=== PATIENT | female | born 1940 | race Caucasian/White ===

== ENCOUNTER → 2018-05-24 | Outpatient (CLI) | payer OTHER ==
[~2018-05-24] MED LIST: ACETAMINOPHEN325 M1 PO; ADULT LOW DOSE81 MG PO; B-COMPLEX PLUS1 EACH PO; CENTRUM ULTRA1 EACH PO; CO Q-10100 MG PO; COLACE 100 MG100 MG PO; FONDAPARIN2.5 MG/0.5 SQ; GLUCOSAMINE-MS1 EAC3 PO; HYDROCODON-ACE1 EACH PO; LOSARTAN-HCTZ1 EACH PO; METAMUCIL PAC1 UDPKT PO; PRAVASTATIN SOD20 MG PO; PRILOSEC 10MG C10 MG PO; RA FISH OIL PO; TAMBOCOR 50 MG50 MG PO; VERAPAMIL ER180 MG PO; VITAMIN D22000 UNIT PO
== END ==
LOC: M.RAD 10:00
DX: Z12.31 Encounter for screening mammogram for malignant neoplasm of breast (principal)

== ENCOUNTER 2018-06-03 09:21 | Emergency (ER) | payer OTHER ==
[~2018-06-03] VITALS: Ht 165.1 cm; Wt 72.6 kg
[~2018-06-03 09:21] MED LIST changes: -CO Q-10100 MG PO; -PRILOSEC 10MG C10 MG PO
[2018-06-03] MEDS ORDERED: CO Q-10100 MG PO (09:36)
[2018-06-03] MEDS ORDERED: PRILOSEC 10MG C10 MG PO (09:36)
[2018-06-03 10:38] VITALS: BP 169/62
== END 2018-06-03 10:39 | disposition home or self-care (01) ==
LOC: M.ERS 09:21
DX: S61.213A Laceration without foreign body of left middle finger without damage to nail, initial encounter (principal); E78.00 Pure hypercholesterolemia, unspecified; I10 Essential (primary) hypertension; Z88.6 Allergy status to analgesic agent; W26.8XXA Contact with other sharp object(s), not elsewhere classified, initial encounter; Y93.89 Activity, other specified; Y92.89 Other specified places as the place of occurrence of the external cause; Y99.8 Other external cause status

== ENCOUNTER → 2019-08-16 | Outpatient (CLI) | payer OTHER ==
[~2019-08-16] MED LIST changes: +CO Q-10100 MG PO; +PRILOSEC 10MG C10 MG PO
== END ==
LOC: M.RAD 13:37
DX: Z12.31 Encounter for screening mammogram for malignant neoplasm of breast (principal)

== ENCOUNTER → 2019-08-25 | Outpatient (CLI) | payer OTHER | LOC: M.RAD 08-18 07:56 | DX: N63.10 Unspecified lump in the right breast, unspecified quadrant (principal) ==

== ENCOUNTER → 2020-03-01 | Outpatient (CLI) | payer OTHER | LOC: M.RAD 12:59 | DX: N63.13 Unspecified lump in the right breast, lower outer quadrant (principal); N63.0 Unspecified lump in unspecified breast ==

== ENCOUNTER → 2020-03-07 | Outpatient (CLI) | payer OTHER ==
--- NOTE | 2020-03-13 16:07 | PATH ---
[address] [address] PATHOLOGY RPT PROCEDURE Name: SANCHEZ LOWE Room: [facility] DANNI Cruz#: [id number] Admission: 03/07/20 Date of : 36 Discharge: Report #: [id number] Path Case #: [id number] [facility] Accession Number: [id number] . 01 Material submitted: . breast - RIGHT BREAST 830 7CM FROM NIPPLE. Modifiers: right . 01 Clinical history: . 0.73 x 0.82 x 0.58 cm . 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 (SEE COMMENT) . (JAC:watson; 03/09/2020) [facility] 03/09/2020 1058 Local . 02 Comment: Specimen type: Image-guided core biopsy Tumor site: Right breast, 8:30, 7.0 cm from nipple Tumor quantitation: Approximately 50% of submitted tissues Histologic grade: Low grade (I of III) Tubules, nuclei and mitoses: 2, 2, 1 LVSI: Not identified Microcalcifications: Identified Markers: Breast tumor profile pending Block: A1 . . Breast tumor profile studies are pending on A1 and will be the subject of an addendum report. . Eleanor ([facility] Handkerchief Folder) notified at approximately 10:40 on 03/09/2020. . Reviewed with Dr. Vince Goodrich, who agrees with the diagnosis. . (JAC:watson; 03/09/2020) . 02 Addendum: . Special studies report received from [facility], [address] [place] [address], [address], [place], [address], on case [id number], labeled with their number [id number], dated 03/12/2020. . Breast/[place] [address] PATHOLOGY RPT PROCEDURE Name: SANCHEZ LOWE Room: [facility] DANNI Cruz#: [id number] Admission: 03/07/20 Date of : 36 Discharge: Report #: [id number] Path Case #: [id number] . Specimen Site: Rt Breast, 8:30, 7 Cm FN, Image-Guided Core Biopsies, Breast Cancer Specimen ID #: [id number] . ER (Estrogen Receptor) Present/Positive Percent: 95.00% Analysis: Manual Comments: Staining Intensity: Strong . NY (Progesterone Receptor) Present/Positive Percent: 95.00% Analysis: Manual Comments: Staining Intensity: Moderate To Strong . HER2 Not Over-Expressed Score: 1+ Analysis: Manual . Ki-67 Low Proliferation Percent: 10.00% Analysis: Manual . . Time to Fixation (Cold Ischemic Time): 1 minute Duration of Fixation: > 6 hours and < 72 hours Type of Fixative: 10% Neutral Buffered Formalin . Comments: ER/PgR testing at [facility] is performed in compliance with the ASCO/CAP Clinical Practice Guidelines. If the result for ER is less than 1% it is reported as Negative; if the ER result is 1-10% it is reported as Low Positive; if the ER result is greater than 10% it is reported as Positive. If the result for PgR is less than 1% it is reported as Negative; if the PgR result is equal to or greater than 1%, it is reported as Positive. . REF: Klaudia KH, Nohelia MAGAÑA, et al: Estrogen and Progesterone Receptor Testing in Breast Cancer. ASCO/CAP Guideline Update. DOI 10.5858/arpa.1625-6283-YB. . Whole slide image capture is performed using Desk ([employer]asily[employer]) platform. Image analysis, if ordered, is performed using [employer] [place] [address] PATHOLOGY RPT PROCEDURE Name: SANCHEZ LOWE Room: [facility]#: [id number] Admission: 03/07/20 Date of : 36 Discharge: Report #: [id number] Path Case #: [id number] at [facility]. Nish Garcia MD Pathologist . . Methodology The HER2 Receptor protein expression is analyzed using the [employer] HER2 rabbit monoclonal antibody (clone 4B5). This assay is used for diagnostic determination of the HER2 protein over-expression in paraffin embedded, formalin fixed breast cancer tissue on the [employer] Benchmark. The specimen is processed using a secondary antibody-HRP conjugate detection system. The membrane staining of the tumor is determined either by manual score or image analysis. This antibody is intended for in vitro diagnostic use. The score is reported as 0, 1+, 2+, or 3+. This test is used for clinical purposes. . A rabbit monoclonal antibody (clone SP1) that recognized the Estrogen Receptor is used to perform immunohistochemistry on routinely fixed (formalin) paraffin embedded tissue on the [employer] Benchmark. The specimen is processed using a secondary antibody-HRP conjugate detection system. The percentage of stained tumor nuclei is determined either manually or by image analysis. This test is intended for in vitro diagnostic use. This test is used for clinical purposes. . A rabbit monoclonal antibody (clone 1E2) that recognized the Progesterone Receptor is used to perform immunohistochemistry on routinely fixed (formalin) paraffin embedded tissue on the [employer] Benchmark. The specimen is processed using a secondary antibody-HRP conjugate detection system. The percentage of stained tumor nuclei is determined either manually or by image analysis. This test is intended for in vitro diagnostic use. This test is used for clinical purposes. . A rabbit monoclonal antibody (clone 30-9) that recognized Ki67 is used to perform immunohistochemistry on routinely fixed (formalin) paraffin embedded tissue on the [employer] Benchmark. The specimen is processed using a secondary antibody-HRP conjugate detection system. The percentage of stained tumor nuclei is determined either manually or by image analysis. This test is intended for in vitro diagnostic use. This test is used for clinical purposes. . Intended Use: This antibody is intended for in vitro diagnostic (IVD) use. HER2 (4B5) is a rabbit monoclonal antibody intended for the semi-quantitative detection of HER2 antigen in sections of formalin-fixed, paraffin embedded normal and neoplastic tissue. . This antibody is intended for in vitro diagnostic (IVD) use. Estrogen Receptor (ER) (SP1) is a rabbit monoclonal antibody (IgG) [place] [address] PATHOLOGY RPT PROCEDURE Name: SANCHEZ LOWE Room: [facility]#: [id number] Admission: 03/07/20 Date of : 36 Discharge: Report #: [id number] Path Case #: [id number] for the qualitative detection of estrogen receptor (ER) antigen in sections of formalin-fixed, paraffin-embedded tissue. ER is a rabbit monoclonal antibody that recognizes human estrogen receptor alpha. . This antibody is intended for in vitro diagnostic (IVD) use. Progesterone Receptor (NY) (1E2) is a rabbit monoclonal antibody (IgG) that is intended for the qualitative detection of progesterone receptor (NY) antigen in sections of formalin fixed, paraffin embedded tissue. NY is a rabbit monoclonal antibody that recognizes the A and B forms of the human progesterone receptor. . This antibody is intended for in vitro diagnostic (IVD) use. Ki-67 (30-9) is a rabbit monoclonal antibody (IgG) directed against C-terminal portion of Ki-67 antigen. Staining for Ki-67 can be used to aid in assessing the proliferative activity of normal and neoplastic tissue. Ki-67 is a nuclear protein expressed in proliferating cells. During the cell cycle, the Ki-67 antigen is present in the G1, S, G2 and M phase but is absent in the G0 (quiescent phase). . . Disclaimer: This Test was performed by [facility]. at [address], [address]. . [facility] is a business unit of [employer]. a wholly-owned subsidiary of [employer]. . This assay has not been validated on decalcified tissues. Results should be interpreted with caution if this specimen was decalcified given the likelihood of false negativity on decalcified specimens. . Any image(s) that accompany this report is/are a customer response representative image(s) only and should not be used to render a diagnosis. . This interpretation is contingent on the specimen and the clinical information received. . For any special tests/stains performed, known positive cells or tissues are tested with each marker and examined to ensure positivity. Positive and negative internal controls, if present, react appropriately. . This analysis is an adjunct to the evaluation of the referring physician and does not represent a final diagnosis. . The immunohistochemistry tests performed at [facility] [employer]. were validated on tissue fixed in 10% neutral buffered formalin. The performance characteristics of the tests performed on tissue processed in other fixatives [place] [address] PATHOLOGY RPT PROCEDURE Name: SANCHEZ LOWE Room: JESUS Cruz#: [id number] Admission: 03/07/20 Date of : 38 Discharge: Report #: [id number] Path Case #: [id number] . HER2 testing at [facility] [employer], is performed in compliance with the 2018 updated ASCO/CAP Clinical Practice Guideline Focused Update. If the result is EQUIVOCAL (2+), it must be confirmed by an alternative assay such as FISH or Dual ANNALISE. REF: Latasha MONSON, ARCHANA Pozo et al: Human Epidermal Growth Factor Receptor 2 Testing in Breast Cancer: ASCO/CAP Clinical Practice Guideline Focused Update. J Clin Oncol 36:1643-5290, 2018. . HER2 and ER/NY ASCO/CAP guidelines require fixation in neutral buffered formalin for a minimum of 6 and a maximum of 72 hours. Fixation times less than 6 hours may not adequately preserve cell proteins. Fixation times longer than 72 hours may cause excess cross-linking of proteins reducing the antigen available for staining. Either scenario can cause reduced staining; hence false negative results are possible and should be considered for these situations if the HER2 IHC score is less than 3+ or ER or NY is negative (no staining or <1% positive). It is recommended that specimens fixed longer than 72 hours with HER2 IHC scores less than 3+ be confirmed by HER2 FISH or Dual ANNALISE. The time from biopsy/excision to fixation in formalin (cold ischemic time) must be less than 1 hour. Time to fixation (cold ischemic time) greater than 1 hour should be interpreted with caution. HER2 testing, mainly HER2 by FISH, is particularly vulnerable since excessive cold ischemic time results in preferential loss of HER2 probe signals that may lead to false negative results. . SCORE STAINING PATTERN IN TUMOR CELLS INTERPRETATION RESULTS 0 No staining observed or incomplete, faint membrane staining in less than or equal to 10% of tumor cells. Negative 1+ Incomplete, faint membrane staining in greater than 10% of tumor cells. Negative 2+ Weak to moderate complete membrane staining observed in greater than 10% of tumor cells. Equivocal* *Must be confirmed by alternative assay (IHC/FISH/Dual ANNALISE) 3+ Intense, complete membrane staining in greater than 10% of tumor cells. Positive . A complete copy of the report is on file. . Professional and Technical services performed by [facility] at [address], [place] [address]. . (JAC:amj 03/13/2020) [place] [address] PATHOLOGY RPT PROCEDURE Name: SANCHEZ LOWE Room: [facility]#: [id number] Admission: 03/07/20 Date of : 36 Discharge: Report #: [id number] Path Case #: [id number] . [facility]/03/13/2020 Addendum Electronically Signed by Shreyas Saini MD, Pathologist . 02 Electronically signed: . Shreyas Saini MD, Pathologist NPI- [id number] . 01 Gross description: . The specimen is received in formalin, labeled "Sanchez Lowe, right breast 8:30, 7 cm FN" and consists of 4 fibroadipose breast needle cores measuring from 1.8 to 3.6 cm in length and up to 0.5 cm in diameter. The specimen was collected at 14:29 and placed in formalin at 14:30. The cold ischemic time is 1 minute and total time in formalin is greater than 6 hours and less than 72 hours. They are entirely submitted in A1-A3. ([facility]; 03/08/2020) [facility] 03/09/2020 1049 Local . 02 Pathologist provided ICD-10: C50.911, D05.11 . 02 CPT . 084259 Specimen Comment: A courtesy copy of this report has been sent to [phone] Specimen Comment: [phone] Specimen Comment: Report sent to / DR MANNING Performed at: [address], [place], [place] [id number] MD Mikey Woods MD Phone: [phone] Performed at: 02 [facility] [address], [place], [place] [id number] MD Shreyas Saini MD Phone: [phone]
== END | disposition home or self-care (01) ==
LOC: M.ULTRA 13:00
DX: C50.911 Malignant neoplasm of unspecified site of right female breast (principal); R92.1 Mammographic calcification found on diagnostic imaging of breast; Z98.890 Other specified postprocedural states; Z88.8 Allergy status to other drugs, medicaments and biological substances

== ENCOUNTER → 2020-04-03 | Outpatient (CLI) | payer OTHER ==
[~2020-04-03] MED LIST changes: +ASA81BEC PO; +LOSARTAN-HCTZ1 EAC3 PO; +PRESERVISION A1 EACH PO; +THERA TEARS15 ML OPHTHALMIC; +TRAMADOL 50 MG50 MG PO; +VERAPAMIL ER180 M1 PO; -VERAPAMIL ER180 MG PO
== END | disposition home or self-care (01) ==
LOC: M.ULTRA 10:53
PROVIDERS: ATTEND Surgery
DX: N63.10 Unspecified lump in the right breast, unspecified quadrant (principal); Z98.890 Other specified postprocedural states; Z79.899 Other long term (current) drug therapy; Z88.8 Allergy status to other drugs, medicaments and biological substances

== ENCOUNTER 2020-04-06 11:05 | Observation (INO) | payer OTHER ==
--- NOTE | ~2020-04-06 | H ---
[address] [address] HISTORY AND PHYSICAL Name: SANCHEZ LOWE Room: [address] Cesar Cruz#: [id number] Admission: 04/06/20 Attend Phys: Jen Bailey DO Discharge: 04/07/20 Date of : 36 Report #: [id number] THIS REPORT FOR: //name// cc: Mateo Chaney MD, Dean L. MD ~ THIS REPORT FOR: //name// Please refer to the History and Physical performed in the physician's office. By: 0651Medical Records Staff [facility] /JANETH
[~2020-04-06 11:05] MED LIST changes: -TRAMADOL 50 MG50 MG PO
[2020-04-06 11:53] LABS: HEMATOCRIT 36.7 % (37.0-47.0); HEMOGLOBIN 12.7 gm/dL (12.0-15.0); MCH 31.1 pg (26.0-34.0); MCHC 34.6 g/dL (28.0-37.0); MCV 89.8 fL (80.0-100.0); MPV 7.8 fl. (7.2-11.1); RBC 4.09 mil/uL (4.20-5.00); WBC 8.7 thou/uL (4.0-11.0)
[2020-04-06 12:06] LABS: CALCIUM 9.6 mg/dL (8.5-10.1); CREATININE 0.7 mg/dL (0.6-1.3); POTASSIUM 3.7 mmol/L (3.5-5.1)
[2020-04-06] MEDS ORDERED: TRAMADOL 50 MG50 MG PO (15:20)
--- NOTE | 2020-04-06 16:25 | EKG ---
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1940 Requested By: Jen Bailey Order Number: [id number] Andriy MD: Graham Browne Measurements Intervals [place] Rate: 60 P: LA: 213 QRS: 24 QRSD: 111 T: 46 QT: 433 QTc: 433 Interpretive Statements Atrial-paced rhythm Baseline wander in lead(s) II,III,aVF Compared to ECG 07/18/2013 12:12:04 No significant changes Electronically Signed On 04-06-2020 16:23:54 CDT by Graham Browne [email or web address] <ELECTRONICALLY SIGNED> By: Graham Browne MD, [facility] 04/06/20 1623 1127 1127 Graham Browne MD, [facility] /EPI
[2020-04-06 21:00] VITALS: BP 141/57
[2020-04-07] VITALS: BP 130/41
[2020-04-07 04:00] VITALS: BP 108/32
--- NOTE | 2020-04-07 06:05 | NUR ---
PATIENT ARRIVED ON FLOOR FROM PACU AT ABOUT 1999. PATIENT WAS POST LUMPECTOMY. PATIENT HAS HAD NO PAIN OR NAUSEA SINCE ARRIVAL ON FLOOR. PATIENT VOIDING WELL. PATIENT SHOULD DISCHARGE HOME THIS MORNING. WILL CONTINUE TO MONITOR.
[2020-04-07 08:00] VITALS: BP 112/81
[2020-04-07 11:28] VITALS: BP 112/81
--- NOTE | 2020-04-11 11:09 | PATH ---
[facility] [address] [place] [address] PATHOLOGY RPT PROCEDURE Name: JAVYFREDISSANCHEZ Room: [address] Cesar Cruz#: [id number] Admission: 04/06/20 Date of : 36 Discharge: 04/07/20 Report #: [id number] Path Case #: [id number] [facility] Accession Number: [id number] . 01 Material submitted: . PART A: breast - RIGHT BREAST LUMPECTOMY WITH SEED. Modifiers: right PART B: lymph node - RIGHT SENTINEL LYMPH NODE #2 335. Modifiers: right PART C: lymph node - RIGHT SENTINEL LYMPH NODE #1 531. Modifiers: right PART D: lymph node - RIGHT SENTINEL LYMPH NODE #3. Modifiers: right . 01 Clinical history: . Malignant neoplasm of lower outer quad right breast. A. Short stitch - sup; long stitch - lat; to mammography for film . 02 Diagnosis: A. Right breast lumpectomy: - RESIDUAL DUCTAL ADENOCARCINOMA, LOW GRADE, SPANNING 6 MM, ADJACENT TO PRIOR BIOPSY SITE INCLUDING U-SHAPED BIOPSY CLIP, WITH ALL SURGICAL MARGINS FREE OF INVOLVEMENT AND CLOSEST (ANTERIOR) LOCATED 5 MM AWAY. SEE COMMENT. . B. Right sentinel lymph node #2, 335: - One benign lymph node (0/1). See comment. . C. Right sentinel lymph node #1, 531: - One benign lymph node (0/1). See comment. . D. Right sentinel lymph node #3: - One benign lymph node (0/1). See comment. (JAC:maggie; 04/10/2020) [facility] 04/10/2020 1657 Local . 02 Comment: Surgical Pathology Cancer Case Summary . Protocol posting date: December 2019 . INVASIVE CARCINOMA OF THE BREAST: Resection . Procedure ___ Lumpectomy . Specimen Laterality ___ Right . Tumor Site ___ [place] [address] PATHOLOGY RPT PROCEDURE Name: SANCHEZ LOWE Room: [address] Cesar Cruz#: [id number] Admission: 04/06/20 Date of : 36 Discharge: 04/07/20 Report #: [id number] Path Case #: [id number] Tumor Size ___ Greatest dimension of largest invasive focus >1 mm: 6 mm . Histologic Type ___ Invasive carcinoma of no special type (ductal) . Histologic Grade (Kate Histologic Score) . Glandular (Acinar)/Tubular Differentiation ___ Score 2 (10% to 75% of tumor area forming glandular/tubular structures) . Nuclear Pleomorphism ___ Score 2 (cells larger than normal with open vesicular nuclei, visible nucleoli, and moderate variability in both size and shape) . Mitotic Rate ___ Score 1 . Overall Grade ___ Grade 1 (scores of 3, 4, or 5) . Tumor Focality ___ Single focus of invasive carcinoma . Ductal Carcinoma In Situ (DCIS) ___ Not identified (see comment) . Lobular Carcinoma In Situ (LCIS) ___ Present . Invasive Carcinoma Margins ___ Uninvolved by invasive carcinoma Distance from closest margin: 5 mm . Closest margins: Anterior . Distance from other margins: ___ Posterior: 7 mm . Regional Lymph Nodes ___ Uninvolved by tumor cells Total Number of Lymph Nodes Examined: 3 Number of Griffin Nodes Examined: 3 . Treatment Effect in the Breast ___ No known presurgical therapy [place] [address] PATHOLOGY RPT PROCEDURE Name: SANCHEZ LOWE Room: [address] Cesar Cruz#: [id number] Admission: 04/06/20 Date of : 36 Discharge: 04/07/20 Report #: [id number] Path Case #: [id number] ___ Not identified . Dermal Lymphovascular Invasion ___ No skin present . . PATHOLOGIC STAGE CLASSIFICATION (pTNM, AJCC 8TH EDITION) . Primary Tumor (pT) ___ pT1b:Tumor greater than 5 mm but less than or equal to 10 mm in greatest dimension . Regional Lymph Nodes Modifier ___ (sn):Griffin node(s) evaluated. . Regional Lymph Nodes (pN) ___ pN0:No regional lymph node metastasis identified. . Additional Pathologic Findings Specify: Atypical ductal hyperplasia . Ancillary Studies . ___ Breast Biomarker Testing Performed on Previous Biopsy Testing Performed on A1 . Estrogen Receptor (ER) ___ Positive (greater than 10% of cells demonstrate nuclear positivity) 95% . Progesterone Receptor (PgR) ___ Positive 95% . HER2 (by immunohistochemistry) ___ Negative (Score 1+) . Ki-67 percentage of positive nuclei: 10% . Microcalcifications (select all that apply) ___ Present in invasive carcinoma ___ Other: Medial calcification of blood vessels . . . No DCIS was identified in the lumpectomy specimen, although it was noted in the prior right breast biopsy ([phone]). . Properly controlled keratin LILI immunohistochemical stain performed on A24 highlights [place] [address] PATHOLOGY RPT PROCEDURE Name: SANCHEZ LOWE Room: [address] Cesar Cruz#: [id number] Admission: 04/06/20 Date of : 36 Discharge: 04/07/20 Report #: [id number] Path Case #: [id number] . Properly controlled keratin AE1/AE3 stains performed on B1, C1, and D1 show no evidence of metastases. (JAC:maggie; 04/10/2020) . 02 Electronically signed: . Shreyas Saini MD, Pathologist NPI- [id number] . 01 Gross description: . A. Received in formalin labeled "Sanchez Lowe, right breast lumpectomy short superior long lateral" is a 42 g breast lumpectomy specimen which measures 8.6 cm from medial to lateral, 5.9 cm from superior to inferior, and 2.0 cm from anterior to posterior. The specimen is inked as follows: Superior-red, inferior-blue, anterior-green, posterior-black, lateral-orange, medial-yellow. The specimen is serially sectioned from medial to lateral into 17 slices. Present within slices 11-12 is a seed device and U shaped biopsy clip. A suárez-white firm mass is present within slices 11-15, measuring 1.8 x 1.5 x 0.8 cm. The mass is located to the margins as follows: 0.7 cm to superior, 2.2 cm to inferior, 0.2 cm to anterior, 0.4 cm to posterior, 5.0 cm to medial, and 1.2 cm to lateral. The uninvolved breast parenchyma is yellow-suárez and lobulated with 10% suárez-white fibrous areas. The specimen is submitted entirely as follows: A1 slice 1, medial margin, perpendicular sections A2 slice 2 A3 slice 3 A4-A5 slice 4 A6-A7 slice 5 A8-A9 slice 6 A10-A11 slice 7 A12-A13 slice 8 A14-A15 slice 9 A16-A17 slice 10 A18-A19 slice 11 A20-A21 slice 12 A22-A23 slice 13 A24-A25 slice 14 A26-A27 slice 15 A28-A29 slice 16 A30-A31 slice 17, lateral margin, perpendicular sections The specimen is removed from the patient at 1330 and placed in formalin at an unspecified time on 04/06/2020. The specimen is removed from formalin at 1850 on 04/08/2020. . B. Received in formalin labeled "Sanchez Lowe, right sentinel lymph node #2" is a 0.5 x 0.5 x 0.3 cm suárez-pink lymph node. The specimen is bisected and submitted in cassette B1. . C. Received in formalin labeled "Sanchez Lowe, [place] [address] PATHOLOGY RPT PROCEDURE Name: JAVYFREDISSANCHEZ Room: [address] Nancy#: [id number] Admission: 04/06/20 Date of : 36 Discharge: 04/07/20 Report #: [id number] Path Case #: [id number] node #1" is a 0.5 x 0.5 x 0.3 cm suárez-pink lymph node. The specimen is bisected and submitted in cassette C1. . D. Received in formalin labeled "Sanchez Lowe, right sentinel lymph node #3" is a 0.8 x 0.6 x 0.6 cm suárez-pink lymph node. The specimen is trisected and submitted in cassette D1. ([facility]; 04/08/2020) [facility] 04/11/2020 1051 Local . 02 Pathologist provided ICD-10: C50.911 . 02 CPT . 101172, 594811, 244682, 134037, J25923, V31817 Specimen Comment: A courtesy copy of this report has been sent to [phone] Specimen Comment: [phone] Specimen Comment: Report sent to / DR RAMSEY Performed at: 01 [facility] [address], [place], [place] [address] MD Mikey Woods MD Phone: [phone] Performed at: 02 [facility] [address], [place], [place] [address] MD Shreyas Saini MD Phone: [phone]
--- NOTE | 2020-04-17 08:39 | OP ---
[facility] [address] [place] [address] OPERATIVE REPORT Name: SANCHEZ LOWE Sherri Room: [address] Cesar MNaomy#: [id number] Admission: 04/06/20 Attend Phys: Jen Bailey DO Discharge: 04/07/20 Date of : 36 Report #: [id number] THIS REPORT FOR: //name// cc: Mateo Chaney MD, Dean L. MD ~ THIS REPORT FOR: //name// CC: Jen Chaney MD DICTATED BY: Lazara Minor DO DATE OF SERVICE: 04/06/2020 PRIMARY CARE PHYSICIAN: Mateo Chaney MD PREOPERATIVE DIAGNOSIS: Right breast cancer. POSTOPERATIVE DIAGNOSIS: Right breast cancer. PRIMARY SURGEON: Jen Bailey DO JAVASCRIPT APPLICATION DEVELOPER: Lazara Minor DO, PGY2 PROCEDURE PERFORMED: Right breast RFID-guided lumpectomy with right deep sentinel lymph node dissection. ANESTHESIA: General and local. ESTIMATED BLOOD LOSS: 10 mL. SPECIMENS: Lumpectomy and sentinel lymph nodes x 3. COMPLICATIONS: None. INTRAOPERATIVE FINDINGS: RFID tag and clip in the right breast, nuclear medicine injection right breast, nipple uptake 13,500. Sycamore lymph node #1 with uptake of 531, was blue as well. Sycamore lymph node #2 with uptake of 335, it was also blue. Sycamore lymph node #3 was blue with no uptake. INDICATIONS: The patient is a pleasant 79-year-old female that presented to our office after a recent biopsy of her right breast. She has been having annual mammograms. However, on her most recent one, there was a suspicious area in the right breast. She had a repeat mammogram in 6 months and was recommended to undergo a biopsy. Pathology was consistent with infiltrating [place] [address] OPERATIVE REPORT Name: JAVYFREDISSANCHEZ Room: [address] Cesar Cruz#: [id number] Admission: 04/06/20 Attend Phys: Jen Bailey DO Discharge: 04/07/20 Date of : 36 Report #: [id number] adenocarcinoma with associated focal DCIS. The cancer was ER/CO positive and HER-2 negative with a Ki-67 of 10%. There was no palpable mass on breast exam. It was recommended that she undergo right breast wire or RFID tag localized lumpectomy with a sentinel lymph node dissection. The procedure, risks, benefits, possible complications of surgery to include bleeding, infection, bruising, risks of anesthesia, poor wound healing, change in breast contour and swelling, seroma formation and other risks of surgery were discussed with the patient in great detail. She voiced complete understanding and wished to proceed with surgery. DESCRIPTION OF PROCEDURE: Informed consent was obtained. The patient was taken to the operating room and placed supine on the operating room table. General LMA anesthesia was induced without difficulty. SCDs were placed on bilateral lower extremities. Preoperative antibiotics were given. The right breast was exposed. A timeout was performed prior to the Lymphazurin blue injection. Once the Lymphazurin blue was injected, the right breast was then prepped and draped in the standard sterile fashion. Neoprobe was brought for uptake at the nipple. Nipple uptake was 13,500. Hologic probe was then used to identify our RFID tag. Once this was done, a gurvinder was made closest to where our tag would be. This is just in the right lower outer quadrant of the breast. Approximately 10 mL of 0.5% Marcaine were injected into the area where our incision was planned. A #15 blade scalpel was used to make a curvilinear incision in the lower outer quadrant of the right breast. Incision was carried down through the subcutaneous tissues using electrocautery. Hologic probe was used throughout the case to ensure that our margins were sufficient. Electrocautery was used to dissect out a sizable lump from the lower outer quadrant of the right breast. The anterior margin appeared to be the closest, this was taken all the way up to the skin. Combination of blunt dissection and electrocautery was used to completely excise the lumpectomy from the breast. Once this was done, it was marked with a short stitch superior, and a long stitch lateral. Hologic probe was used to ensure that the RFID tag was contained within the specimen. Again, anterior margin appeared to be her closest but this was taken right at the skin with no more anterior margin that could be taken. Additional margins were approximately almost 2 cm in each direction. The specimen was passed off and sent to Radiology for imaging. We inspected the lumpectomy cavity and electrocautery was used for hemostasis. We then brought the Neoprobe back onto the field and the axilla was explored to see which area we had with the most uptake in. Once this was determined, approximately 5 mL of 0.5% Marcaine were injected in the area of our planned incision. A 4 cm curvilinear incision was made in the right axilla. Incision was carried down through the subcutaneous tissues using electrocautery. Weitlaner retractor was used. We continued our dissection down to the subcutaneous tissues until we reached the clavipectoral fascia. This was incised using electrocautery. A Weitlaner retractor was advanced in. Neoprobe was used to direct our dissection. Hemostat was used to bluntly dissect through the axillary fatty tissues until we encountered an obviously bright blue tract from our Lymphazurin blue injection. We followed [address] [address] OPERATIVE REPORT Name: SANCHEZ LOWE Room: [address] Cesar Cruz#: [id number] Admission: 04/06/20 Attend Phys: Jen Bailey DO Discharge: 04/07/20 Date of : 36 Report #: [id number] this until we encountered what appeared to be a bright blue lymph node. This initial lymph node was excised with approximately 335 of uptake noted with the Neoprobe. Neoprobe was again used to explore the right axilla. We still got significant uptake and other bright blue lymph node was identified. This was excised and uptake was noted to be 531. This was our first sentinel lymph node. An additional blue lymph node was identified in this area and also excised. There was no uptake with the Neoprobe. Neoprobe was again used to explore the right axilla. No significant uptake was noted. The axillary incision was copiously irrigated with sterile water. At this point, the radiologist called back in to inform us that both our biopsy clip and RFID tag were present in our specimen. We then copiously irrigated the lumpectomy cavity with sterile water. FloSeal was used in both our axillary incision as well as our lumpectomy cavity. The subcutaneous tissues at both incisions were approximated using 3-0 Vicryl suture in a simple interrupted and inverted fashion. The skin at both incisions was closed using 4-0 Monocryl suture in a running subcuticular fashion. A total of 30 mL of 0.5% Marcaine were used for local anesthesia. Skin was cleansed and dried and Dermabond was applied to each incision. The patient tolerated the procedure very well. She was allowed to awaken in the operating room and was transferred to PACU in stable condition. <ELECTRONICALLY SIGNED> By: Jen Bailey DO 04/17/20 [id number] Bailey DO /nt
== END 2020-04-07 14:00 | disposition home or self-care (01) ==
LOC: M.SUR 11:05 → M.NUC 12:30 → M.SUR 17:17 → M.TBA 17:43 → M.3W 20:07
PROVIDERS: ADMIT Surgery; ATTEND Surgery
DX: Z03.818 Encounter for observation for suspected exposure to other biological agents ruled out (principal); C50.411 Malignant neoplasm of upper-outer quadrant of right female breast; R11.0 Nausea

== ENCOUNTER → 2020-10-16 | Outpatient (CLI) | payer OTHER ==
[~2020-10-16] MED LIST changes: +TRAMADOL 50 MG50 MG PO
== END ==
LOC: M.RAD 04-20 14:50
PROVIDERS: ATTEND Surgery
DX: C50.911 Malignant neoplasm of unspecified site of right female breast (principal); Z98.890 Other specified postprocedural states; R92.8 Other abnormal and inconclusive findings on diagnostic imaging of breast

== ENCOUNTER → 2021-10-18 | Outpatient (CLI) | payer OTHER | LOC: M.RAD 14:26 | PROVIDERS: ATTEND Internal Medicine Hematology & Oncology | DX: C50.411 Malignant neoplasm of upper-outer quadrant of right female breast (principal); Z17.0 Estrogen receptor positive status [ER+] ==